=== PATIENT | male | born 1970 | race Caucasian/White ===

== ENCOUNTER 2021-03-05 23:16 | Emergency (ER) | payer SELFPAY ==
[~2021-03-05] VITALS: Ht 167.6 cm; Wt 82.0 kg
[2021-03-06 00:43] LABS: HEMATOCRIT 44.2 % (39.0-50.0); HEMOGLOBIN 12.9 g/dl (14.0-18.0); IMMATURE GRANULOCYTES 0.1 % (0.0-5.0); MEAN CORPUSCULAR HGB 21.9 pG CALC (26.0-32.0); MEAN CORPUSCULAR HGB CONC 29.2 g/dL CAL (32.0-36.0); NEUT# 5.39 thou/uL (1.82-7.42); RED BLOOD COUNT 5.89 mill/uL (4.70-6.10)
[2021-03-06 00:57] LABS: ALBUMIN 3.8 g/dL (3.2-5.0); ALKALINE PHOSPHATASE 94 u/l (38-126); ANION GAP 11 (6-22 (CALC)); BUN 9 mg/dL (9-20); BUN/CREATININE RATIO 10 (12-20 (CALC)); CARBON DIOXIDE 31 mmol/l (22-30); CHLORIDE 99 mmol/l (95-108); CREATININE 0.9 mg/dL (0.7-1.3); GFR > 60 ML/MIN (>=60 (CALC)); GFR FOR AFR.AMER. > 60 ML/MIN (>=60 (CALC)); POTASSIUM 4.2 mmol/l (3.5-5.1); SGOT/AST 17 u/l (17-59); SODIUM 138 mmol/l (137-146); TOTAL PROTEIN 7.3 g/dL (6.3-8.2)
[2021-03-06 01:09] LABS: MYOGLOBIN 32 ng/mL (0 - 121)
[2021-03-06] MEDS ORDERED: METFORMIN HCL1000 M1 PO (01:46)
[2021-03-06 03:22] LABS: URINE BILIRUBIN - DIPSTICK NEGATIVE (NEGATIVE); URINE BLOOD DIPSTICK NEGATIVE (NEGATIVE); URINE COLOR YELLOW; URINE GLUCOSE - DIPSTICK NEGATIVE (NEGATIVE); URINE KETONE NEGATIVE (NEGATIVE); URINE LEUK ESTERASE NEGATIVE (NEGATIVE); URINE PROTEIN - DIPSTICK NEGATIVE (NEG-TRACE); URINE UROBILINOGEN - DIPSTICK 0.2 E.U./dL (0.2)
[2021-03-06 03:24] LABS: URINE NITRITE - DIPSTICK NEGATIVE (Negative)
[2021-03-06 03:46] VITALS: BP 128/66
== END 2021-03-06 03:35 | disposition short-term general hospital (02) | DRG 293 ==
LOC: ED 23:16
PROVIDERS: Emergency Medicine
DX: I11.0 Hypertensive heart disease with heart failure (principal); I50.9 Heart failure, unspecified; J98.4 Other disorders of lung; I27.20 Pulmonary hypertension, unspecified; E11.9 Type 2 diabetes mellitus without complications; T38.3X6A Underdosing of insulin and oral hypoglycemic [antidiabetic] drugs, initial encounter; Z91.128 Patient's intentional underdosing of medication regimen for other reason; Z86.16 Personal history of COVID-19; Z20.822 Contact with and (suspected) exposure to COVID-19
CPT/HCPCS: Q9967

== ENCOUNTER 2021-03-13 08:59 | Emergency (ER) | payer SELFPAY ==
[~2021-03-13] VITALS: Ht 167.6 cm; Wt 88.6 kg
[~2021-03-13 08:59] MED LIST: METFORMIN HCL1000 M1 PO
[2021-03-13 10:02] LABS: URINE BILIRUBIN - DIPSTICK NEGATIVE (NEGATIVE); URINE BLOOD DIPSTICK TRACE-INTACT (NEGATIVE); URINE COLOR YELLOW; URINE GLUCOSE - DIPSTICK >=1000 mg/dL (NEGATIVE); URINE KETONE NEGATIVE (NEGATIVE); URINE LEUK ESTERASE NEGATIVE (NEGATIVE); URINE PH 7.5 (4.5-8.0); URINE PROTEIN - DIPSTICK NEGATIVE (NEG-TRACE)
[2021-03-13 10:13] LABS: URINE NITRITE - DIPSTICK NEGATIVE (Negative)
[2021-03-13 11:00] VITALS: BP 127/69
== END 2021-03-13 11:00 | disposition home or self-care (01) | DRG 696 ==
LOC: ED 08:59
PROC: 0T9B70Z Drainage of Bladder with Drainage Device, Via Natural or Artificial Opening (ICD-10-PCS; principal; 2021-03-13)
DX: R33.9 Retention of urine, unspecified (principal); I11.0 Hypertensive heart disease with heart failure; I50.9 Heart failure, unspecified; E11.9 Type 2 diabetes mellitus without complications; F17.210 Nicotine dependence, cigarettes, uncomplicated; Z79.84 Long term (current) use of oral hypoglycemic drugs

== ENCOUNTER 2021-03-24 05:57 | Emergency (ER) | payer SELFPAY ==
[~2021-03-24] VITALS: Ht 167.6 cm; Wt 86.4 kg
[2021-03-24 07:03] VITALS: BP 124/74
[2021-03-24] MEDS ORDERED: CIPROFLOXACN500 MG PO (07:05)
== END 2021-03-24 07:12 | disposition home or self-care (01) | DRG 696 ==
LOC: ED 05:57
PROC: 0T9B70Z Drainage of Bladder with Drainage Device, Via Natural or Artificial Opening (ICD-10-PCS; principal; 2021-03-24)
DX: R33.9 Retention of urine, unspecified (principal); E11.9 Type 2 diabetes mellitus without complications; I11.0 Hypertensive heart disease with heart failure; I50.9 Heart failure, unspecified; F17.200 Nicotine dependence, unspecified, uncomplicated; Z79.84 Long term (current) use of oral hypoglycemic drugs

== ENCOUNTER 2021-06-09 21:08 | Emergency (ER) | payer MEDICAID ==
[~2021-06-09] VITALS: Ht 167.6 cm; Wt 88.0 kg
[2021-06-09] VITALS (8 sets, daily range): BP systolic 98–127; BP diastolic 62–84
[~2021-06-09 21:08] MED LIST changes: +CIPROFLOXACN500 MG PO
[2021-06-09 22:02] LABS: HEMATOCRIT 43.4 % (39.0-50.0); HEMOGLOBIN 12.9 g/dl (14.0-18.0); IMMATURE GRANULOCYTES 0.1 % (0.0-5.0); MEAN CELL VOLUME 78.2 fL CALC (80.0-100.0); MEAN CORPUSCULAR HGB 23.2 pG CALC (26.0-32.0); MEAN CORPUSCULAR HGB CONC 29.7 g/dL CAL (32.0-36.0); NEUT# 6.01 thou/uL (1.82-7.42); RED BLOOD COUNT 5.55 mill/uL (4.70-6.10); RED CELL DISTRI WIDTH 16.1 % (11.5-15.5)
[2021-06-09 22:19] LABS: ACT PARTIAL THROMBO TIME 28.4 SECONDS (20.0-32.5); PROTHROMBIN TIME 10.9 SECONDS (9.0-12.5)
[2021-06-09 22:20] LABS: ALBUMIN 3.9 g/dL (3.2-5.0); ALKALINE PHOSPHATASE 99 u/l (38-126); ANION GAP 13 (6-22 (CALC)); BILIRUBIN, TOTAL 0.5 mg/dL (0.0-1.4); BUN 9 mg/dL (9-20); BUN/CREATININE RATIO 12 (12-20 (CALC)); CARBON DIOXIDE 25 mmol/l (22-30); CHLORIDE 100 mmol/l (95-108); CREATININE 0.7 mg/dL (0.7-1.3); GFR > 60 ML/MIN (>=60 (CALC)); GFR FOR AFR.AMER. > 60 ML/MIN (>=60 (CALC)); LIPASE 76 u/l (23-300); POTASSIUM 3.5 mmol/l (3.5-5.1); SGOT/AST 21 u/l (17-59); SODIUM 135 mmol/l (137-146)
== END 2021-06-09 23:34 | disposition short-term general hospital (02) ==
LOC: ED 21:08
DX: I21.4 Non-ST elevation (NSTEMI) myocardial infarction (principal); I11.0 Hypertensive heart disease with heart failure; I50.9 Heart failure, unspecified; E11.9 Type 2 diabetes mellitus without complications; I25.2 Old myocardial infarction; F17.200 Nicotine dependence, unspecified, uncomplicated; Z79.84 Long term (current) use of oral hypoglycemic drugs; Z20.822 Contact with and (suspected) exposure to COVID-19
CPT/HCPCS: J1644

== ENCOUNTER 2021-09-25 08:39 | Emergency (ER) | payer MEDICAID ==
[2021-09-25] VITALS (11 sets, daily range): BP systolic 139–173; BP diastolic 86–121
[~2021-09-25] VITALS: Ht 167.6 cm; Wt 97.0 kg
[2021-09-25 09:03] LABS: URINE BILIRUBIN - DIPSTICK NEGATIVE (NEGATIVE); URINE BLOOD DIPSTICK LARGE (NEGATIVE); URINE COLOR YELLOW; URINE GLUCOSE - DIPSTICK 100 mg/dL (NEGATIVE); URINE KETONE NEGATIVE (NEGATIVE); URINE LEUK ESTERASE NEGATIVE (NEGATIVE); URINE PROTEIN - DIPSTICK NEGATIVE (NEG-TRACE); URINE SPECIFIC GRAVITY 1.015; URINE UROBILINOGEN - DIPSTICK 0.2 E.U./dL (0.2)
[2021-09-25 09:06] LABS: URINE NITRITE - DIPSTICK NEGATIVE (Negative)
[2021-09-25] MEDS ORDERED: TAMSULOSIN0.4 MG PO (09:09)
[2021-09-25 09:15] LABS: URINE BACTERIA MODERATE hpf; URINE WBC 0-2 WBC/hpf (0-5)
[2021-09-25] MEDS ORDERED: OMNI-PAC300 MG PO (09:38)
[2021-09-25 10:07] LABS: HEMATOCRIT 46.8 % (39.0-50.0); HEMOGLOBIN 14.2 g/dl (14.0-18.0); IMMATURE GRANULOCYTES 0.1 % (0.0-5.0); MEAN CELL VOLUME 78.5 fL CALC (80.0-100.0); MEAN CORPUSCULAR HGB 23.8 pG CALC (26.0-32.0); MEAN CORPUSCULAR HGB CONC 30.3 g/dL CAL (32.0-36.0); NEUT# 7.47 thou/uL (1.82-7.42); RED BLOOD COUNT 5.96 mill/uL (4.70-6.10)
[2021-09-25 10:21] LABS: ALKALINE PHOSPHATASE 90 u/l (38-126); ANION GAP 11 (6-22 (CALC)); BILIRUBIN, TOTAL 0.3 mg/dL (0.0-1.4); BUN 5 mg/dL (9-20); BUN/CREATININE RATIO 7 (12-20 (CALC)); CARBON DIOXIDE 28 mmol/l (22-30); CHLORIDE 101 mmol/l (95-108); CREATININE 0.7 mg/dL (0.7-1.3); GFR FOR AFR.AMER. > 60 ML/MIN (>=60 (CALC)); GFR OTHER RACES > 60 ML/MIN (>=60 (CALC)); POTASSIUM 3.8 mmol/l (3.5-5.1); SGOT/AST 18 u/l (17-59); SODIUM 136 mmol/l (137-146); TOTAL PROTEIN 7.3 g/dL (6.3-8.2)
== END 2021-09-25 11:39 | disposition home or self-care (01) ==
LOC: ED 08:39
PROVIDERS: Family Medicine
DX: N40.1 Benign prostatic hyperplasia with lower urinary tract symptoms (principal); R33.8 Other retention of urine; N39.0 Urinary tract infection, site not specified; B96.1 Klebsiella pneumoniae [K. pneumoniae] as the cause of diseases classified elsewhere; I11.0 Hypertensive heart disease with heart failure; I50.22 Chronic systolic (congestive) heart failure; E11.9 Type 2 diabetes mellitus without complications; I48.91 Unspecified atrial fibrillation
CPT/HCPCS: Q9967

== ENCOUNTER 2022-01-10 05:10 | Emergency (ER) | payer MEDICAID ==
[~2022-01-10] VITALS: Ht 167.6 cm; Wt 95.0 kg
[~2022-01-10 05:10] MED LIST changes: +ALPRAZOLAM0.5 MG PO; +ASPIRIN81 MG PO; +ATORVASTATIN CA20 MG PO; +BUMETANIDE1 MG PO; +CARVEDILOL25 MG PO; +ENTRESTO 49-511 TAB PO; +METFORMIN HYD1000 MG PO; +METFORMIN500 M2 PO; +OMNI-PAC300 MG PO; +TAMSULOSIN0.4 MG PO
[2022-01-10 05:25] VITALS: BP 133/94
[2022-01-10 05:30] VITALS: BP 126/80
[2022-01-10] MEDS ORDERED: BISOPROLOL FUMA10 MG PO (05:47)
[2022-01-10] MEDS ORDERED: FARXIGA10 MG PO (05:48)
[2022-01-10] MEDS ORDERED: SPIRONOLACT25 MG PO (05:48)
[2022-01-10] MEDS ORDERED: CORLANOR5 MG PO (05:50)
[2022-01-10] MEDS ORDERED: XARELTO10 MG PO (05:52)
[2022-01-10 06:07] LABS: URINE BILIRUBIN - DIPSTICK NEGATIVE (NEGATIVE); URINE BLOOD DIPSTICK SMALL (NEGATIVE); URINE COLOR YELLOW; URINE GLUCOSE - DIPSTICK NEGATIVE (NEGATIVE); URINE KETONE NEGATIVE (NEGATIVE); URINE PROTEIN - DIPSTICK NEGATIVE (NEG-TRACE); URINE UROBILINOGEN - DIPSTICK 0.2 E.U./dL (0.2)
[2022-01-10 06:14] LABS: URINE EPITHELIAL CELLS RARE EPI/hpf (0-FEW); URINE LEUK ESTERASE NEGATIVE (NEGATIVE); URINE NITRITE - DIPSTICK NEGATIVE (Negative)
[2022-01-10 06:15] LABS: URINE BACTERIA MANY hpf
[2022-01-10] MEDS ORDERED: BACTRIM DS1 TAB PO (06:24)
[2022-01-10 07:00] VITALS: BP 123/72
== END 2022-01-10 07:01 | disposition home or self-care (01) ==
LOC: ED 05:10
PROVIDERS: Emergency Medicine
DX: N40.1 Benign prostatic hyperplasia with lower urinary tract symptoms (principal); R33.8 Other retention of urine; N39.0 Urinary tract infection, site not specified; B96.1 Klebsiella pneumoniae [K. pneumoniae] as the cause of diseases classified elsewhere; I11.0 Hypertensive heart disease with heart failure; I50.9 Heart failure, unspecified; E11.9 Type 2 diabetes mellitus without complications; F17.200 Nicotine dependence, unspecified, uncomplicated; Z99.81 Dependence on supplemental oxygen

== ENCOUNTER 2022-05-03 18:09 | Inpatient (IN) | payer MEDICAID ==
[~2022-05-03] VITALS: Ht 167.6 cm; Wt 90.6 kg
[~2022-05-03 18:09] MED LIST changes: +BACTRIM DS1 TAB PO; +BISOPROLOL FUMA10 MG PO; +CORLANOR5 MG PO; +FARXIGA10 MG PO; +SPIRONOLACT25 MG PO; +XARELTO10 MG PO
[2022-05-03] MEDS ORDERED: CORLANOR5 MG PO (18:24)
[2022-05-03 19:20] VITALS: BP 122/96
[2022-05-03 19:30] VITALS: BP 127/94
[2022-05-03 19:34] LABS: BASO% 1.3 % (0-3); EOS% 1.5 % (0-8); HEMATOCRIT 45.2 % (39.0-50.0); HEMOGLOBIN 12.7 g/dl (14.0-18.0); IMMATURE GRANULOCYTES 0.3 % (0.0-5.0); LYMPH% 19.4 % (15-41); MEAN CELL VOLUME 75.5 fL CALC (80.0-100.0); MEAN CORPUSCULAR HGB 21.2 pG CALC (26.0-32.0); MEAN CORPUSCULAR HGB CONC 28.1 g/dL CAL (32.0-36.0); MONO% 7.3 % (2-13); NEUT# 5.02 thou/uL (1.82-7.42); NEUT% 70.2 % (42-76); RED BLOOD COUNT 5.99 mill/uL (4.70-6.10); RED CELL DISTRI WIDTH 16.9 % (11.5-15.5)
[2022-05-03 19:41] LABS: ALBUMIN 4.1 g/dL (3.2-5.0); ALKALINE PHOSPHATASE 129 u/l (38-126); ANION GAP 9 (6-22 (CALC)); BUN 7 mg/dL (9-20); BUN/CREATININE RATIO 10 (12-20 (CALC)); CARBON DIOXIDE 29 mmol/l (22-30); CHLORIDE 100 mmol/l (95-108); CREATININE 0.7 mg/dL (0.7-1.3); GFR FOR AFR.AMER. > 60 ML/MIN (>=60 (CALC)); GFR OTHER RACES > 60 ML/MIN (>=60 (CALC)); POTASSIUM 4.1 mmol/l (3.5-5.1); SGOT/AST 24 u/l (17-59); SODIUM 134 mmol/l (137-146); TOTAL PROTEIN 7.6 g/dL (6.3-8.2)
[2022-05-03 19:43] LABS: INTERNATIONAL NORMALIZED RATIO 1.2 RATIO (0.7-1.3); PROTHROMBIN TIME 12.1 SECONDS (9.0-12.5)
[2022-05-03 19:45] VITALS: BP 120/91
[2022-05-03 20:15] VITALS: BP 130/91
[2022-05-03] MEDS ORDERED: OMNICEF300 M1 PO (20:28)
[2022-05-03] MEDS ORDERED: FLUOXETINE10 M2 PO (20:29)
[2022-05-03] MEDS ORDERED: REMERON SOLTAB15 MG (20:30)
[2022-05-03] MEDS ORDERED: HYDROCODONE/ACE1 T12 (20:30)
[2022-05-03] MEDS ORDERED: NEBIVOLOL (20:31)
[2022-05-03] MEDS ORDERED: [UNRECOGNIZED DRUG - OTHER] (20:31)
[2022-05-03] MEDS ORDERED: PROAIR HFA IN (20:32)
[2022-05-03 22:16] VITALS: BP 145/99
[2022-05-03 23:25] LABS: URINE BILIRUBIN - DIPSTICK NEGATIVE (NEGATIVE); URINE BLOOD DIPSTICK TRACE-INTACT (NEGATIVE); URINE COLOR YELLOW; URINE GLUCOSE - DIPSTICK NEGATIVE (NEGATIVE); URINE KETONE NEGATIVE (NEGATIVE); URINE LEUK ESTERASE NEGATIVE (NEGATIVE); URINE PH 6.5 (4.5-8.0); URINE PROTEIN - DIPSTICK NEGATIVE (NEG-TRACE); URINE UROBILINOGEN - DIPSTICK 0.2 E.U./dL (0.2)
[2022-05-03 23:31] LABS: URINE NITRITE - DIPSTICK NEGATIVE (Negative)
[2022-05-04 00:08] VITALS: BP 121/84
[2022-05-04 04:23] VITALS: BP 122/83
[2022-05-04 06:09] VITALS: BP 122/83
[2022-05-04 10:53] VITALS: BP 122/80
[2022-05-04 14:57] VITALS: BP 127/76
[2022-05-04 19:39] VITALS: BP 112/78
[2022-05-05] VITALS (7 sets, daily range): BP systolic 109–140; BP diastolic 64–97
[2022-05-05 06:26] LABS: BASO% 1.8 % (0-3); EOS% 2.4 % (0-8); HEMATOCRIT 48.1 % (39.0-50.0); HEMOGLOBIN 13.5 g/dl (14.0-18.0); IMMATURE GRANULOCYTES 0.1 % (0.0-5.0); MEAN CELL VOLUME 76.2 fL CALC (80.0-100.0); MEAN CORPUSCULAR HGB 21.4 pG CALC (26.0-32.0); MEAN CORPUSCULAR HGB CONC 28.1 g/dL CAL (32.0-36.0); MONO% 8.5 % (2-13); NEUT# 5.35 thou/uL (1.82-7.42); NEUT% 67.2 % (42-76); RED BLOOD COUNT 6.31 mill/uL (4.70-6.10); RED CELL DISTRI WIDTH 17.6 % (11.5-15.5)
[2022-05-05 06:33] LABS: ALBUMIN 4.1 g/dL (3.2-5.0); ALKALINE PHOSPHATASE 136 u/l (38-126); ANION GAP 9 (6-22 (CALC)); BILIRUBIN, TOTAL 1.1 mg/dL (0.2-1.3); BUN 7 mg/dL (9-20); BUN/CREATININE RATIO 10 (12-20 (CALC)); CARBON DIOXIDE 34 mmol/l (22-30); CHLORIDE 97 mmol/l (95-108); CREATININE 0.8 mg/dL (0.7-1.3); GFR FOR AFR.AMER. > 60 ML/MIN (>=60 (CALC)); GFR OTHER RACES > 60 ML/MIN (>=60 (CALC)); MAGNESIUM 1.9 mg/dL (1.6-2.3); POTASSIUM 3.6 mmol/l (3.5-5.1); SGOT/AST 26 u/l (17-59); SODIUM 137 mmol/l (137-146); TOTAL PROTEIN 7.7 g/dL (6.3-8.2)
[2022-05-06 03:18] VITALS: BP 124/87
[2022-05-06 05:30] LABS: BASO% 1.3 % (0-3); EOS% 2.4 % (0-8); HEMOGLOBIN 13.6 g/dl (14.0-18.0); IMMATURE GRANULOCYTES 0.1 % (0.0-5.0); MEAN CORPUSCULAR HGB 21.7 pG CALC (26.0-32.0); MEAN CORPUSCULAR HGB CONC 28.9 g/dL CAL (32.0-36.0); MONO% 10.1 % (2-13); NEUT# 5.15 thou/uL (1.82-7.42); NEUT% 63.1 % (42-76); RED BLOOD COUNT 6.27 mill/uL (4.70-6.10); RED CELL DISTRI WIDTH 16.7 % (11.5-15.5)
[2022-05-06 05:42] LABS: ALBUMIN 3.7 g/dL (3.2-5.0); ALKALINE PHOSPHATASE 124 u/l (38-126); ANION GAP 9 (6-22 (CALC)); BILIRUBIN, TOTAL 0.7 mg/dL (0.2-1.3); BUN 9 mg/dL (9-20); BUN/CREATININE RATIO 11 (12-20 (CALC)); CARBON DIOXIDE 32 mmol/l (22-30); CHLORIDE 96 mmol/l (95-108); CREATININE 0.8 mg/dL (0.7-1.3); GFR FOR AFR.AMER. > 60 ML/MIN (>=60 (CALC)); GFR OTHER RACES > 60 ML/MIN (>=60 (CALC)); MAGNESIUM 1.7 mg/dL (1.6-2.3); POTASSIUM 3.9 mmol/l (3.5-5.1); SGOT/AST 21 u/l (17-59); SODIUM 134 mmol/l (137-146); TOTAL PROTEIN 7.1 g/dL (6.3-8.2)
[2022-05-06 07:09] VITALS: BP 127/85
[2022-05-06 10:47] VITALS: BP 114/70
== END 2022-05-06 13:53 | DRG 291 ==
LOC: ED 18:09 → ED-I 20:30 → ED 20:42 → MS2 20:43
PROVIDERS: Nurse Practitioner; Nurse Practitioner Family; ADMIT Internal Medicine; ATTEND Internal Medicine
PROC: 0T9B70Z Drainage of Bladder with Drainage Device, Via Natural or Artificial Opening (ICD-10-PCS; 2022-05-03)
PROC: 0W993ZZ Drainage of Right Pleural Cavity, Percutaneous Approach (ICD-10-PCS; principal; 2022-05-05)
DX: I11.0 Hypertensive heart disease with heart failure (principal); I50.23 Acute on chronic systolic (congestive) heart failure; J91.8 Pleural effusion in other conditions classified elsewhere; J96.11 Chronic respiratory failure with hypoxia; E11.9 Type 2 diabetes mellitus without complications; J44.9 Chronic obstructive pulmonary disease, unspecified; N40.1 Benign prostatic hyperplasia with lower urinary tract symptoms; R33.8 Other retention of urine; I25.2 Old myocardial infarction; F17.200 Nicotine dependence, unspecified, uncomplicated; T50.2X6A Underdosing of carbonic-anhydrase inhibitors, benzothiadiazides and other diuretics, initial encounter; Z91.128 Patient's intentional underdosing of medication regimen for other reason; Z99.81 Dependence on supplemental oxygen; Z95.818 Presence of other cardiac implants and grafts; Z79.01 Long term (current) use of anticoagulants
CPT/HCPCS: Q9967

== ENCOUNTER 2022-06-23 19:03 | Emergency (ER) | payer MEDICAID ==
[~2022-06-23] VITALS: Ht 167.6 cm; Wt 89.9 kg
[2022-06-23] VITALS (17 sets, daily range): BP systolic 119–151; BP diastolic 73–101
[~2022-06-23 19:03] MED LIST changes: +ATORVASTATIN CA10 MG PO; -ATORVASTATIN CA20 MG PO; +FLUOXETINE10 M2 PO; +HYDROCODONE/ACE1 T12; +NEBIVOLOL; +OMNICEF300 M1 PO; +PROAIR HFA IN; +REMERON SOLTAB15 MG; +[UNRECOGNIZED DRUG - OTHER]
[2022-06-23 20:17] LABS: BASO% 0.7 % (0-3); EOS% 0.5 % (0-8); HEMATOCRIT 51.4 % (39.0-50.0); HEMOGLOBIN 15.7 g/dl (14.0-18.0); IMMATURE GRANULOCYTES 0.1 % (0.0-5.0); LYMPH% 12.4 % (15-41); MEAN CELL VOLUME 73.6 fL CALC (80.0-100.0); MEAN CORPUSCULAR HGB 22.5 pG CALC (26.0-32.0); MEAN CORPUSCULAR HGB CONC 30.5 g/dL CAL (32.0-36.0); MONO% 8.2 % (2-13); NEUT# 8.45 thou/uL (1.82-7.42); NEUT% 78.1 % (42-76); RED BLOOD COUNT 6.98 mill/uL (4.70-6.10); RED CELL DISTRI WIDTH 15.4 % (11.5-15.5)
[2022-06-23 20:34] LABS: ALBUMIN 4.6 g/dL (3.2-5.0); ALKALINE PHOSPHATASE 147 u/l (38-126); ANION GAP 16 (6-22 (CALC)); BILIRUBIN, TOTAL 0.8 mg/dL (0.2-1.3); BUN 7 mg/dL (9-20); BUN/CREATININE RATIO 8 (12-20 (CALC)); CARBON DIOXIDE 31 mmol/l (22-30); CHLORIDE 91 mmol/l (95-108); CREATININE 0.9 mg/dL (0.7-1.3); GFR FOR AFR.AMER. > 60 ML/MIN (>=60 (CALC)); GFR OTHER RACES > 60 ML/MIN (>=60 (CALC)); SGOT/AST 36 u/l (17-59); SODIUM 135 mmol/l (137-146); TOTAL PROTEIN 8.6 g/dL (6.3-8.2)
[2022-06-23 20:40] LABS: POTASSIUM 3.1 mmol/l (3.5-5.1)
[2022-06-23 22:18] LABS: URINE BILIRUBIN - DIPSTICK NEGATIVE (NEGATIVE); URINE BLOOD DIPSTICK TRACE-LYSED (NEGATIVE); URINE COLOR YELLOW; URINE GLUCOSE - DIPSTICK NEGATIVE (NEGATIVE); URINE KETONE NEGATIVE (NEGATIVE); URINE LEUK ESTERASE TRACE (NEGATIVE); URINE PH 7.5 (4.5-8.0); URINE PROTEIN - DIPSTICK NEGATIVE (NEG-TRACE); URINE SPECIFIC GRAVITY <=1.005; URINE UROBILINOGEN - DIPSTICK 0.2 E.U./dL (0.2)
[2022-06-23 22:20] LABS: URINE NITRITE - DIPSTICK POSITIVE (Negative)
[2022-06-23 22:26] LABS: URINE BACTERIA MODERATE hpf; URINE YEAST MANY hpf
[2022-06-24] VITALS (56 sets, daily range): BP systolic 83–119; BP diastolic 45–81
[2022-06-24 01:32] LABS: ACT PARTIAL THROMBO TIME 28.7 SECONDS (20.0-32.5); INTERNATIONAL NORMALIZED RATIO 1.2 RATIO (0.7-1.3); PROTHROMBIN TIME 11.4 SECONDS (9.0-12.5)
[2022-06-24] MEDS ORDERED: METFORMIN HCL500 M1 PO (11:15)
[2022-06-24] MEDS ORDERED: BENZONATATE150 MG PO (11:15)
[2022-06-24] MEDS ORDERED: CARVEDILOL25 MG PO (11:16)
[2022-06-24] MEDS ORDERED: NICODERM C14 MG/241 TOP (11:18)
[2022-06-24 11:42] LABS: ANION GAP 11 (6-22 (CALC)); BUN 9 mg/dL (9-20); BUN/CREATININE RATIO 12 (12-20 (CALC)); CARBON DIOXIDE 30 mmol/l (22-30); CHLORIDE 96 mmol/l (95-108); CREATININE 0.8 mg/dL (0.7-1.3); GFR FOR AFR.AMER. > 60 ML/MIN (>=60 (CALC)); GFR OTHER RACES > 60 ML/MIN (>=60 (CALC)); POTASSIUM 3.6 mmol/l (3.5-5.1); SODIUM 133 mmol/l (137-146)
== END 2022-06-24 17:42 | disposition short-term general hospital (02) ==
LOC: ED 19:03
PROVIDERS: Emergency Medicine; Family Medicine
DX: I21.4 Non-ST elevation (NSTEMI) myocardial infarction (principal); N39.0 Urinary tract infection, site not specified; E87.6 Hypokalemia; I11.0 Hypertensive heart disease with heart failure; I50.9 Heart failure, unspecified; E11.9 Type 2 diabetes mellitus without complications; J44.9 Chronic obstructive pulmonary disease, unspecified; N40.0 Benign prostatic hyperplasia without lower urinary tract symptoms; F41.9 Anxiety disorder, unspecified; F32.A Depression, unspecified; F17.200 Nicotine dependence, unspecified, uncomplicated; Z79.84 Long term (current) use of oral hypoglycemic drugs; Z95.810 Presence of automatic (implantable) cardiac defibrillator; Z99.81 Dependence on supplemental oxygen; Z20.822 Contact with and (suspected) exposure to COVID-19
CPT/HCPCS: J1644; J1956

== ENCOUNTER 2022-08-27 07:50 | Emergency (ER) | payer MEDICAID ==
[~2022-08-27] VITALS: Ht 167.6 cm; Wt 86.0 kg
[~2022-08-27 07:50] MED LIST changes: +BENZONATATE150 MG PO; +METFORMIN HCL500 M1 PO; +NICODERM C14 MG/241 TOP
[2022-08-27 08:01] VITALS: BP 131/79
[2022-08-27 08:30] VITALS: BP 102/71
[2022-08-27 08:49] LABS: URINE BILIRUBIN - DIPSTICK NEGATIVE (NEGATIVE); URINE BLOOD DIPSTICK TRACE-LYSED (NEGATIVE); URINE COLOR YELLOW; URINE GLUCOSE - DIPSTICK NEGATIVE (NEGATIVE); URINE KETONE NEGATIVE (NEGATIVE); URINE LEUK ESTERASE NEGATIVE (NEGATIVE); URINE PROTEIN - DIPSTICK NEGATIVE (NEG-TRACE); URINE UROBILINOGEN - DIPSTICK 0.2 E.U./dL (0.2)
[2022-08-27 08:51] LABS: URINE NITRITE - DIPSTICK NEGATIVE (Negative)
[2022-08-27 09:00] VITALS: BP 101/65
[2022-08-27 09:39] VITALS: BP 101/65
== END 2022-08-27 09:48 | disposition home or self-care (01) ==
LOC: ED 07:50
PROVIDERS: Family Medicine
DX: N40.1 Benign prostatic hyperplasia with lower urinary tract symptoms (principal); R33.8 Other retention of urine; I11.0 Hypertensive heart disease with heart failure; I50.9 Heart failure, unspecified; E11.9 Type 2 diabetes mellitus without complications; J44.9 Chronic obstructive pulmonary disease, unspecified; F41.9 Anxiety disorder, unspecified; F32.A Depression, unspecified; F17.210 Nicotine dependence, cigarettes, uncomplicated; Z99.81 Dependence on supplemental oxygen; Z95.1 Presence of aortocoronary bypass graft; Z95.810 Presence of automatic (implantable) cardiac defibrillator; Z79.84 Long term (current) use of oral hypoglycemic drugs

== ENCOUNTER 2023-10-12 00:57 | Emergency (ER) | payer MEDICAID ==
[~2023-10-12] VITALS: Ht 167.6 cm; Wt 90.0 kg
[~2023-10-12 00:57] MED LIST changes: +CARVEDILOL3.125 MG PO; +ELIQUIS2.5 MG PO; +PLAVIX75 MG PO; +REMERON SOLTAB15 MG PO; +XANAX0.5 MG PO
[2023-10-12 01:06] VITALS: BP 141/90
[2023-10-12] MEDS ORDERED: SULFAMETHOXAZOLE W/TRIMETHOPRI 1 COMBO TAB PO ONE (01:15)
[2023-10-12] MEDS ORDERED: BACTRIM DS1 TAB PO (01:20)
[2023-10-12] MEDS ORDERED: LIDOCAINE HCL 2 % JELLY UR ONE (01:20)
[2023-10-12 01:31] VITALS: BP 129/87
[2023-10-12 02:01] VITALS: BP 108/67
[2023-10-12 02:08] VITALS: BP 108/67
[2023-10-12 02:16] LABS: URINE BILIRUBIN - DIPSTICK Negative (NEGATIVE); URINE BLOOD DIPSTICK Large (NEGATIVE); URINE GLUCOSE - DIPSTICK 500 mg/dL (NEGATIVE); URINE KETONE Negative (NEGATIVE); URINE LEUK ESTERASE Trace (NEGATIVE); URINE PROTEIN - DIPSTICK 30 mg/dL (NEG-TRACE); URINE SPECIFIC GRAVITY 1.015; URINE UROBILINOGEN - DIPSTICK 0.2 E.U./dL (0.2)
[2023-10-12 02:17] LABS: URINE COLOR Yellow
[2023-10-12 02:19] LABS: URINE NITRITE - DIPSTICK Negative (Negative)
[2023-10-12 02:20] LABS: URINE RBC 25-50 RBC/hpf (0-5)
[2023-10-12 02:21] LABS: URINE BACTERIA MODERATE hpf; URINE EPITHELIAL CELLS MODERATE EPI/hpf (0-FEW); URINE YEAST MODERATE hpf
== END 2023-10-12 02:30 | disposition home or self-care (01) ==
LOC: ED 00:57
PROVIDERS: Family Medicine
DX: T83.091A Other mechanical complication of indwelling urethral catheter, initial encounter (principal); N40.1 Benign prostatic hyperplasia with lower urinary tract symptoms; E11.9 Type 2 diabetes mellitus without complications; J44.9 Chronic obstructive pulmonary disease, unspecified; F41.9 Anxiety disorder, unspecified; F32.A Depression, unspecified; Y84.6 Urinary catheterization as the cause of abnormal reaction of the patient, or of later complication, without mention of misadventure at the time of the procedure; Z99.81 Dependence on supplemental oxygen; Z95.1 Presence of aortocoronary bypass graft; Z95.5 Presence of coronary angioplasty implant and graft; Z79.84 Long term (current) use of oral hypoglycemic drugs; Z72.0 Tobacco use

== ENCOUNTER 2023-10-23 15:28 | Emergency (ER) | payer MEDICAID ==
[~2023-10-23] VITALS: Ht 167.6 cm; Wt 95.2 kg
[2023-10-23 15:40] VITALS: BP 181/115
[2023-10-23 15:46] VITALS: BP 159/77
[2023-10-23 16:01] VITALS: BP 125/72
[2023-10-23 16:01] LABS: URINE BILIRUBIN - DIPSTICK Negative (NEGATIVE); URINE BLOOD DIPSTICK Trace-intact (NEGATIVE); URINE GLUCOSE - DIPSTICK >=1000 mg/dL (NEGATIVE); URINE KETONE Negative (NEGATIVE); URINE NITRITE - DIPSTICK Negative (Negative); URINE PROTEIN - DIPSTICK 30 mg/dL (NEG-TRACE); URINE UROBILINOGEN - DIPSTICK 0.2 E.U./dL (0.2)
[2023-10-23 16:02] LABS: URINE COLOR Yellow; URINE LEUK ESTERASE Small (NEGATIVE)
[2023-10-23 16:07] LABS: URINE WBC 50-100 WBC/hpf (0-5)
[2023-10-23 16:08] LABS: URINE YEAST MODERATE hpf
[2023-10-23 16:15] VITALS: BP 117/69
[2023-10-23] MEDS ORDERED: OMNICEF300 MG PO (16:15)
[2023-10-23 16:30] VITALS: BP 109/68
[2023-10-23 16:45] VITALS: BP 123/74
[2023-10-24] MEDS ORDERED: OMNICEF300 MG PO (18:08)
[2023-10-25] MEDS ORDERED: MACROBID100 M1 PO (10:33)
== END 2023-10-23 17:01 | disposition home or self-care (01) ==
LOC: ED 15:28
PROVIDERS: Family Medicine
DX: N39.0 Urinary tract infection, site not specified (principal); B95.2 Enterococcus as the cause of diseases classified elsewhere; T83.9XXA Unspecified complication of genitourinary prosthetic device, implant and graft, initial encounter; I50.9 Heart failure, unspecified; J44.9 Chronic obstructive pulmonary disease, unspecified; E11.9 Type 2 diabetes mellitus without complications; F41.9 Anxiety disorder, unspecified; F32.A Depression, unspecified; F17.210 Nicotine dependence, cigarettes, uncomplicated; Y84.6 Urinary catheterization as the cause of abnormal reaction of the patient, or of later complication, without mention of misadventure at the time of the procedure; Z95.1 Presence of aortocoronary bypass graft; Z99.81 Dependence on supplemental oxygen; Z96.0 Presence of urogenital implants; Z79.84 Long term (current) use of oral hypoglycemic drugs

== ENCOUNTER 2023-10-31 13:10 | Emergency (ER) | payer MEDICAID ==
[~2023-10-31] VITALS: Ht 167.6 cm; Wt 95.2 kg
[~2023-10-31 13:10] MED LIST changes: +MACROBID100 M1 PO; +OMNICEF300 MG PO
[2023-10-31 13:34] VITALS: BP 132/87
[2023-10-31 13:47] VITALS: BP 157/82
[2023-10-31 14:00] VITALS: BP 115/83
[2023-10-31 14:15] VITALS: BP 104/73
== END 2023-10-31 14:38 | disposition home or self-care (01) ==
LOC: ED 13:10
DX: T83.091A Other mechanical complication of indwelling urethral catheter, initial encounter (principal); E11.9 Type 2 diabetes mellitus without complications; J44.9 Chronic obstructive pulmonary disease, unspecified; I50.9 Heart failure, unspecified; F41.9 Anxiety disorder, unspecified; F32.A Depression, unspecified; F17.200 Nicotine dependence, unspecified, uncomplicated; Y84.6 Urinary catheterization as the cause of abnormal reaction of the patient, or of later complication, without mention of misadventure at the time of the procedure; Z99.81 Dependence on supplemental oxygen; Z95.1 Presence of aortocoronary bypass graft; Z95.810 Presence of automatic (implantable) cardiac defibrillator; Z95.5 Presence of coronary angioplasty implant and graft

== ENCOUNTER 2024-01-08 16:54 | Emergency (ER) | payer MEDICAID ==
[~2024-01-08] VITALS: Ht 167.6 cm; Wt 81.6 kg
[2024-01-08 17:20] VITALS: BP 170/106
[2024-01-08 17:34] VITALS: BP 169/109
[2024-01-08 17:52] VITALS: BP 136/78
[2024-01-08 17:55] LABS: URINE BILIRUBIN - DIPSTICK Negative (NEGATIVE); URINE BLOOD DIPSTICK Large (NEGATIVE); URINE GLUCOSE - DIPSTICK >=1000 mg/dL (NEGATIVE); URINE KETONE Negative (NEGATIVE); URINE LEUK ESTERASE Trace (NEGATIVE); URINE PH 6.5 (4.5-8.0); URINE PROTEIN - DIPSTICK Negative (NEG-TRACE); URINE UROBILINOGEN - DIPSTICK 0.2 E.U./dL (0.2)
[2024-01-08 17:59] LABS: URINE COLOR Yellow; URINE NITRITE - DIPSTICK Positive (Negative)
[2024-01-08 18:00] VITALS: BP 145/95
[2024-01-08 18:02] LABS: URINE RBC 25-50 RBC/hpf (0-5); URINE WBC 20-50 WBC/hpf (0-5)
[2024-01-08 18:03] LABS: URINE BACTERIA FEW hpf
[2024-01-08] MEDS ORDERED: KEFLEX500 MG PO (18:16)
[2024-01-08 18:30] VITALS: BP 123/76
[2024-01-08 18:38] VITALS: BP 123/76
== END 2024-01-08 18:40 | disposition home or self-care (01) ==
LOC: ED 16:54
PROVIDERS: Nurse Practitioner
DX: R33.9 Retention of urine, unspecified (principal); N39.0 Urinary tract infection, site not specified; B96.1 Klebsiella pneumoniae [K. pneumoniae] as the cause of diseases classified elsewhere; E11.9 Type 2 diabetes mellitus without complications; J44.9 Chronic obstructive pulmonary disease, unspecified; F41.9 Anxiety disorder, unspecified; F32.A Depression, unspecified; F17.200 Nicotine dependence, unspecified, uncomplicated; Z95.1 Presence of aortocoronary bypass graft; Z99.81 Dependence on supplemental oxygen; Z95.810 Presence of automatic (implantable) cardiac defibrillator; Z95.5 Presence of coronary angioplasty implant and graft

== ENCOUNTER 2024-06-10 22:24 | Emergency (ER) | payer SELFPAY ==
[~2024-06-10] VITALS: Ht 167.6 cm; Wt 95.0 kg
[~2024-06-10 22:24] MED LIST changes: +KEFLEX500 MG PO
[2024-06-10] MEDS ORDERED: DICLOFENAC SODIUM 75 MG/TAB PO ONE (23:15)
[2024-06-10] MEDS ORDERED: Acetaminophen 300 MG/Codeine 30 MG/COMBO PO ONE (23:15)
[2024-06-11 01:42] VITALS: BP 133/75
== END 2024-06-11 01:50 | disposition home or self-care (01) | DRG 605 ==
LOC: ED 22:24
DX: S20.213A Contusion of bilateral front wall of thorax, initial encounter (principal); S00.83XA Contusion of other part of head, initial encounter; E11.9 Type 2 diabetes mellitus without complications; J44.9 Chronic obstructive pulmonary disease, unspecified; F41.9 Anxiety disorder, unspecified; F32.A Depression, unspecified; W20.8XXA Other cause of strike by thrown, projected or falling object, initial encounter; Z99.81 Dependence on supplemental oxygen; Z95.1 Presence of aortocoronary bypass graft; Z95.5 Presence of coronary angioplasty implant and graft; Z95.810 Presence of automatic (implantable) cardiac defibrillator; Z72.0 Tobacco use